=== PATIENT | male | born 1930 | race Caucasian/White ===

== ENCOUNTER → 2016-09-02 | Outpatient (CLI) | payer MEDICARE, BC | LOC: LAB.O 08:32 | DX: N18.4 Chronic kidney disease, stage 4 (severe) (principal); I12.0 Hypertensive chronic kidney disease with stage 5 chronic kidney disease or end stage renal disease; E11.29 Type 2 diabetes mellitus with other diabetic kidney complication ==

== ENCOUNTER → 2016-10-21 | Outpatient (CLI) | payer MEDICARE, BC | END | disposition home or self-care (01) | LOC: GMAJ 10:45 | PROVIDERS: ATTEND Family Medicine | DX: Z12.5 Encounter for screening for malignant neoplasm of prostate (principal); E11.9 Type 2 diabetes mellitus without complications; I10 Essential (primary) hypertension ==

== ENCOUNTER → 2017-01-04 | Outpatient (CLI) | payer MEDICARE, BC | END | disposition home or self-care (01) | LOC: LAB.O 07:42 | PROVIDERS: ATTEND Internal Medicine | DX: C64.2 Malignant neoplasm of left kidney, except renal pelvis (principal); N18.4 Chronic kidney disease, stage 4 (severe) ==

== ENCOUNTER → 2017-05-11 | Outpatient (CLI) | payer MEDICARE, BC | LOC: LAB.O 08:22 | PROVIDERS: ATTEND Internal Medicine | DX: N18.3 Chronic kidney disease, stage 3 (moderate) (principal); E11.9 Type 2 diabetes mellitus without complications; I12.0 Hypertensive chronic kidney disease with stage 5 chronic kidney disease or end stage renal disease ==

== ENCOUNTER → 2017-08-30 | Outpatient (CLI) | payer MEDICARE, BC | LOC: GMAJ 17:34 | PROVIDERS: ATTEND Family Medicine | DX: N39.0 Urinary tract infection, site not specified (principal) ==

== ENCOUNTER → 2017-09-07 | Outpatient (CLI) | payer MEDICARE, BC ==
--- NOTE | 2017-09-07 19:56 | US ---
EXAM DESCRIPTION: Renal: Ultrasound. CLINICAL HISTORY: HEMATURIA, RENAL CELL CARCINOMA. Right nephrectomy. COMPARISON: Bilateral renal arterial Doppler evaluation on the same visit. TECHNIQUE: Transcutaneous scanning: Two-dimensional and Doppler modes. FINDINGS: Left kidney measures 12.2 x 10.6 x 8.6 cm; mid-renal cortical thickness 12 mm. . Lobulated hypoechoic heterogeneous mass with mostly posterior acoustic enhancement measuring 7.5 x 7.1 x 6.5 cm. This appears to be involving the mid kidney and possibly renal pelvis. Minimally vascular. No hydronephrosis No echogenic stones. An anechoic cyst with well-defined margins and posterior enhancement features measures 1.5 x 1.7 x 1.2 cm. Lobulated contour of the kidney with no perinephric fluid. Proximal ureter not visualized. No fluid or soft tissue mass in the right renal fossa. Urinary bladder was visualized. Prevoid volume 118.9 mL. Ureteral jet in the bladder not seen. Post void volume 21.3 mL. Patient voided approximately 80% of initial volume, approximately 98 mL. Minimal bladder wall thickening subjectively. Abdominal aorta diameter not measured . IMPRESSION: 1. 7.5 cm hypoechoic mass, minimally vascular in the region of the kidney and renal pelvis. No hydronephrosis. Mostly posterior enhancement features. Differential includes primary or metastatic disease, complicated cyst or cyst with debris, or residual inflammatory tissue. Recommend CT scan of the abdomen and pelvis without and with IV contrast and with oral contrast. 2. Patient is able to void approximately 80% of initial urinary bladder volume. Subjectively, the bladder wall appears thickened. Electronically signed by: Juancarlos Christianson MD 09/07/2017 7:55 PM CDT
== END ==
LOC: US 10:00
PROVIDERS: ATTEND Internal Medicine
DX: R31.9 Hematuria, unspecified (principal); C64.9 Malignant neoplasm of unspecified kidney, except renal pelvis; Z90.5 Acquired absence of kidney

== ENCOUNTER → 2017-11-03 | Outpatient (CLI) | payer MEDICARE, BC | LOC: LAB.O 12:37 | PROVIDERS: ATTEND Internal Medicine | DX: I12.0 Hypertensive chronic kidney disease with stage 5 chronic kidney disease or end stage renal disease (principal); N18.4 Chronic kidney disease, stage 4 (severe); E11.9 Type 2 diabetes mellitus without complications; E11.29 Type 2 diabetes mellitus with other diabetic kidney complication ==

== ENCOUNTER → 2018-04-04 | Outpatient (CLI) | payer MEDICARE, BC | LOC: LAB.O 08:00 | PROVIDERS: ATTEND Internal Medicine | DX: N18.4 Chronic kidney disease, stage 4 (severe) (principal); E78.2 Mixed hyperlipidemia; E11.9 Type 2 diabetes mellitus without complications; E11.29 Type 2 diabetes mellitus with other diabetic kidney complication ==

== ENCOUNTER → 2018-05-29 | Outpatient (CLI) | payer MEDICARE, BC ==
--- NOTE | 2018-05-29 15:28 | CT ---
EXAM DESCRIPTION: Abdoment/Pelvis w/o Contrast CLINICAL HISTORY: 88 years, 88 years, Male, Male, HEMATURIA COMPARISON: None. TECHNIQUE: CT of the abdomen and pelvis is performed according to our non contrast protocol This exam was performed according to our departmental dose-optimization program, which includes automated exposure control, adjustment of the mA and/or kV according to patient size and/or use of iterative reconstruction technique. FINDINGS: The lung bases demonstrate patchy stranding or scarring at both lung bases without dense consolidation or pleural effusion or pulmonary mass. A small retrocardiac hiatal hernia is present. The liver is small and normal in size without evident gallbladder or solid or cystic hepatic mass or significant abnormal ductal dilation. A small normal spleen is present with fatty infiltrated pancreas. Small normal adrenal glands are noted. The right kidney is is surgically absent and the aorta heavily calcified without aneurysm or retroperitoneal adenopathy. The left kidney is markedly abnormal with a large heterogeneous mass replacing the posterior two thirds of the kidney and estimated at a maximal diameter of a proximally 7.8 cm. The kidney is oriented in an anterior to posterior direction and I am uncertain whether the mass involves the lower pole or upper pole of the kidney. Primary renal cell carcinoma is strongly suspected. Benign cyst involving the cortex of the kidney more anteriorly is present as well as significant caliectasis of the anterior pole of the kidney. Further evaluation with contrast-enhanced examination is recommended. Periaortic or retroperitoneal adenopathy is not apparent. Left renal vein appears moderately distended and the possibility of tumor involvement cannot be excluded on this noncontrast study. Anterior abdominal wall is markedly abnormal with rather marked atrophy of the upper portion of the right rectus muscle and the lower portion of the left rectus muscle. A very small umbilical hernia is noted. On the left inferiorly a much larger fat-containing hernia, probably a spigelian hernia, at the dural margin of the atrophic left rectus muscles and the lateral abdominal musculature is noted. Large and small bowel caliber is normal. The bladder is incompletely distended and appears thick-walled. Stool distended rectum is noted. A distinct or definite inguinal hernia is not apparent. The bony spine demonstrates degenerative disc changes at L4-5 and to a lesser extent L5-S1 without bony destructive changes. IMPRESSION: 1. Surgical absence of the right kidney with large almost 8 cm mass three patent replacing the posterior aspect of the right kidney with the kidney oriented in an anterior to posterior axis. The mass is most consistent with a primary renal cell carcinoma and enhanced CT or MRI examination recommended. Moderate caliectasis of the anterior pole of the kidney is noted and the possibility of renal vein involvement with mass cannot be excluded. 2. Small hiatal hernia and small fat-containing ventral hernia with a much larger left lower quadrant anterior abdominal wall fat-containing hernia, likely a spigelian hernia. 3. Surgical absence of the gallbladder and basilar linear pulmonary stranding most consistent with scarring and/or atelectasis. 4. Lower lumbar degenerative disc disease without evidence of bony destructive mass. Electronically signed by: Rufus Almendarez MD 05/29/2018 3:25 PM CDT
== END ==
LOC: RAD 11:19
PROVIDERS: ATTEND Family Medicine
DX: N28.89 Other specified disorders of kidney and ureter (principal); K44.9 Diaphragmatic hernia without obstruction or gangrene; K43.9 Ventral hernia without obstruction or gangrene; M51.36 Other intervertebral disc degeneration, lumbar region; Z90.5 Acquired absence of kidney; Z90.49 Acquired absence of other specified parts of digestive tract

== ENCOUNTER 2018-08-18 13:54 | Emergency (ER) | payer MEDICARE, BC ==
--- NOTE | 2018-08-18 14:26 | ED.PDOC ---
History of Present Illness - General Chief Complaint: General Stated Complaint: SOB, N/V, weakness, lethargy Time Seen by Provider: 08/18/18 14:04 Source: patient, family - History of Present Illness Initial Comments: Pt has been feeling weak and SOB x 3 weeks since last immunotherapy infusion ([employer]). Pt also has had N/V/D intermittantly. Pt sent from Clinic because of abnormal EKG . Pt has 60% of one kidney remaining. Timing/Duration: intermittent Severity: moderate Improving Factors: immobilization Worsening Factors: movement Associated Symptoms: malaise, nausea/vomiting, shortness of breath, weakness Allergies/Adverse Reactions: Allergies NO KNOWN ALLERGY Allergy (Verified 08/18/18 14:24) Home Medications: Ambulatory Orders Allopurinol [Zyloprim] 100 mg PO DAILY 08/18/18 Amlodipine Besylate [Norvasc] 2.5 mg PO DAILY 08/18/18 Aspirin [Adult Aspirin Regimen] 81 mg PO DAILY 08/18/18 Carvedilol 25 mg PO DAILY 08/18/18 Cholecalciferol [Vitamin D3] 2,000 unit PO DAILY 08/18/18 Coenzyme Q10 (Ubidecarenone) [Co Q-10] 200 mg PO DAILY 08/18/18 Cyanocobalamin [Vitamin B-12] 5,000 mcg PO DAILY 08/18/18 Cyproheptadine HCl 2 mg PO DAILY PRN 08/18/18 Glimepiride 1 mg PO DAILY 08/18/18 Mirabegron [Myrbetriq] 25 mg PO DAILY 08/18/18 Niacin [Niacin Tr] 1,000 mg PO DAILY 08/18/18 Nivolumab [Opdivo] 40 mg IV MONTHLY 08/18/18 Oxybutynin Chloride [Ditropan Xl] 10 mg PO DAILY 08/18/18 Pantoprazole Tablet [Protonix] 40 mg PO DAILY 08/18/18 Simvastatin 10 mg PO DAILY 08/18/18 Terazosin [Hytrin] 2 mg PO DAILY 08/18/18 Tramadol HCl [Ultram] 50 mg PO Q6H PRN 08/18/18 Review of Systems - Review of Systems Constitutional: States: weakness. Denies: fever EENTM: States: no symptoms reported Respiratory: States: short of breath. Denies: cough, orthopnea Cardiology: Denies: chest pain, edema Gastrointestinal/Abdominal: States: diarrhea, nausea, vomiting. Denies: abdominal pain Genitourinary: States: no symptoms reported Musculoskeletal: States: no symptoms reported Skin: States: no symptoms reported Neurological: States: no symptoms reported Endocrine: States: no symptoms reported Hematologic/Lymphatic: States: no symptoms reported Past Medical History (General) - Patient Medical History Hx Stroke: No Hx of COPD: No Hx Cardiac Disorders: No Hx Congestive Heart Failure: No Hx Hypertension: Yes Hx Diabetes: Yes Hx Cancer: Yes - Renal Surgical History: appendectomy, cholecystectomy, tonsillectomy - Vaccination History Hx Influenza Vaccination: Yes Hx Pneumococcal Vaccination: Yes - Social History Hx Tobacco Use: Yes Hx Alcohol Use: Yes Hx Substance Use: No Hx Substance Use Treatment: No Hx Depression: No - Female History Patient is a Female of Child Bearing Age (10 -59 yrs old): No Patient : No Family Medical History - Family History Mother Family History: No Known Living Status: Physical Exam - Physical Exam General Appearance: Alert, Comfortable Eye Exam: bilateral normal Ears, Nose, Throat: hearing grossly normal, normal pharynx, other - dry mucosa Neck: non-tender, full range of motion, normal inspection Respiratory: lungs clear, normal breath sounds, no respiratory distress Cardiovascular/Chest: no edema, irregularly irregular Gastrointestinal/Abdominal: normal bowel sounds, non tender, soft Extremity: normal range of motion, non-tender, normal inspection 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, alert, normal mood/affect, oriented x 3 Skin Exam: normal color, warm/dry Lymphatic: no adenopathy Progress - EKG/XRAY/CT EKG: Atrial, Fibrillation, RBBB Comments: frequent PVC's, rate 95, QRS 140, QTc 517 Departure - Departure Clinical Impression: Elevated troponin I level, New onset atrial fibrillation CHF (congestive heart failure) Qualifiers: Heart failure type: unspecified Heart failure chronicity: acute Qualified Code(s): I50.9 - Heart failure, unspecified Renal cell carcinoma Qualifiers: Laterality: unspecified laterality Qualified Code(s): C64.9 - Malignant neoplasm of unspecified kidney, except renal pelvis Disposition: Transfer to Hospital Condition: Fair Departure Forms: ED Discharge - Pt. Copy, Patient Portal Self Enrollment Referrals: Kentrell Pritchard MD [Primary Care Provider] - 1-2 Weeks Home Medications: Ambulatory Orders Allopurinol [Zyloprim] 100 mg PO DAILY 08/18/18 Amlodipine Besylate [Norvasc] 2.5 mg PO DAILY 08/18/18 Aspirin [Adult Aspirin Regimen] 81 mg PO DAILY 08/18/18 Carvedilol 25 mg PO DAILY 08/18/18 Cholecalciferol [Vitamin D3] 2,000 unit PO DAILY 08/18/18 Coenzyme Q10 (Ubidecarenone) [Co Q-10] 200 mg PO DAILY 08/18/18 Cyanocobalamin [Vitamin B-12] 5,000 mcg PO DAILY 08/18/18 Cyproheptadine HCl 2 mg PO DAILY PRN 08/18/18 Glimepiride 1 mg PO DAILY 08/18/18 Mirabegron [Myrbetriq] 25 mg PO DAILY 08/18/18 Niacin [Niacin Tr] 1,000 mg PO DAILY 08/18/18 Nivolumab [Opdivo] 40 mg IV MONTHLY 08/18/18 Oxybutynin Chloride [Ditropan Xl] 10 mg PO DAILY 08/18/18 Pantoprazole Tablet [Protonix] 40 mg PO DAILY 08/18/18 Simvastatin 10 mg PO DAILY 08/18/18 Terazosin [Hytrin] 2 mg PO DAILY 08/18/18 Tramadol HCl [Ultram] 50 mg PO Q6H PRN 08/18/18 Critical Care Note - Critical Care Note Total Time (mins): 40 Comments: Presenting sx's: SOB, weakness. Findings: New onset A. Fib, CHF, Elevated Troponin, elevated total CK, Chronic Renal injury with stable creat., Hypokalemia Actions: IV KCL, IV heparin infusion, transfer to higher level of care Systems at risk: Cardiovascular, Transfer to Outside Facility - Transfer Information Accepting Facility: [facility] Reason for Transfer: required specialist not available - Dr Marrero accepted pt in transfer
[2018-08-18] MEDS ORDERED: SODIUM CHLORIDE 0.9% 500ML 500 ML IVS ONE (14:32)
--- NOTE | 2018-08-18 14:53 | RAD ---
EXAM DESCRIPTION: Chest,1 View CLINICAL HISTORY: 88 years Male, weakness COMPARISON: Previous chest x-ray February 15, 2018 TECHNIQUE: AP portable chest. FINDINGS: Heart size is large with large central pulmonary arteries consistent with pulmonary hypertension. Mildly increased vascularity more peripherally in the perihilar lower lobe regions. No focal consolidating infiltrate to suggest pneumonia. No pulmonary mass or worrisome nodule. No pneumothorax or pleural effusion. Bones are unremarkable. IMPRESSION: Larger with increased vascularity. Electronically signed by: Luis Fernando Sandhu MD 08/18/2018 2:51 PM CDT
[2018-08-18] MEDS ORDERED: KCL 20MEQ/WATER FOR INJ 100ML 20 MEQ in PREMIX BAG 1 BAG IVPB ONE (15:06)
[2018-08-18] MEDS ORDERED: POTASSIUM CHLORIDE 20 MEQ TAB PO ONE (15:07)
[2018-08-18] MEDS ORDERED: KCL 20MEQ/WATER FOR INJ 100ML 100 ML IVPB ONE (15:10)
[2018-08-18] MEDS ORDERED: HEPARIN PREMIX 25,000 UNITS in PREMIX BAG 1 BAG IVS SCH (15:45)
[2018-08-18] MEDS ORDERED: HEPARIN PREMIX 500 ML ONE (16:02)
[2018-08-18 16:31] VITALS: BP 159/59; TEMP 97.6; O2SAT 96
== END 2018-08-18 16:25 | disposition short-term general hospital (02) ==
LOC: ER 13:54
DX: I50.9 Heart failure, unspecified (principal); I48.91 Unspecified atrial fibrillation; R79.89 Other specified abnormal findings of blood chemistry; C64.9 Malignant neoplasm of unspecified kidney, except renal pelvis; R11.2 Nausea with vomiting, unspecified; I44.0 Atrioventricular block, first degree; I49.3 Ventricular premature depolarization; I10 Essential (primary) hypertension; E11.9 Type 2 diabetes mellitus without complications; Z87.891 Personal history of nicotine dependence; Z79.899 Other long term (current) drug therapy; Z79.82 Long term (current) use of aspirin
CPT/HCPCS: 36415; 71045; 80048; 82550; 82553; 83880; 84484; 85025; 85610; 85730; 86140; 93005; J1644; J3480; J7040

== ENCOUNTER 2018-08-24 09:47 | Inpatient (IN) | payer MEDICARE, BC ==
--- NOTE | 2018-08-24 10:06 | ED.PDOC ---
History of Present Illness - General Chief Complaint: Respiratory Problem Stated Complaint: difficulty breathing,difficulty swallowing Time Seen by Provider: 08/24/18 10:06 Source: family Exam Limitations: no limitations - History of Present Illness Initial Comments: Nicola Brewster 88 y/o male brought by EMS to ER with SOB on home O2 and difficulty swallowing for the last 2 weeks..He was just recently discharged from [facility] with Acute AR and afib on anti coagulation..has also Renal cell CA and DM2.Daughter stated had swallowing studies done at [facility] -.NO chest pains but more SOB Timing/Duration: 7-24 hours Severity: moderate Activities at Onset: rest Possible Cause: occasional episodes Improving Factors: nothing Worsening Factors: movement Associated Symptoms: other - see hpi Allergies/Adverse Reactions: Allergies NO KNOWN ALLERGY Allergy (Verified 08/18/18 14:24) Home Medications: Ambulatory Orders Allopurinol [Zyloprim] 100 mg PO DAILY 08/18/18 Cholecalciferol [Vitamin D3] 2,000 unit PO DAILY 08/18/18 Coenzyme Q10 (Ubidecarenone) [Co Q-10] 200 mg PO DAILY 08/18/18 Cyanocobalamin [Vitamin B-12] 5,000 mcg PO DAILY 08/18/18 Cyproheptadine HCl 2 mg PO DAILY PRN 08/18/18 Glimepiride 1 mg PO DAILY 08/18/18 Mirabegron [Myrbetriq] 25 mg PO DAILY 08/18/18 Niacin [Niacin Tr] 1,000 mg PO BEDTIME 08/18/18 Oxybutynin Chloride [Ditropan Xl] 10 mg PO DAILY 08/18/18 Pantoprazole Tablet [Protonix] 40 mg PO DAILY 08/18/18 Simvastatin 10 mg PO DAILY 08/18/18 Terazosin [Hytrin] 2 mg PO BEDTIME 08/18/18 Tramadol HCl [Ultram] 50 mg PO Q6H PRN 08/18/18 Apixaban [Eliquis] 2.5 mg PO BID 08/24/18 Furosemide [Lasix] 40 mg PO DAILY 08/24/18 Metoprolol Succinate [Toprol XL] 50 mg PO DAILY 08/24/18 Nitroglycerin 0.4 mg Tab [Nitrostat] 1 ea SL PRN 08/24/18 Potassium Chloride [K-Tab] 10 meq PO DAILY 08/24/18 Review of Systems - Review of Systems Constitutional: States: no symptoms reported EENTM: States: see HPI, other - dysphagia Respiratory: States: see HPI Cardiology: States: no symptoms reported Gastrointestinal/Abdominal: States: no symptoms reported Genitourinary: States: no symptoms reported Musculoskeletal: States: no symptoms reported Skin: States: no symptoms reported Neurological: States: no symptoms reported All other Systems: Reviewed and Negative, No Change from Baseline Past Medical History (General) - Patient Medical History Hx Stroke: No Hx of COPD: No Hx Cardiac Disorders: Yes - recent AR Hx Congestive Heart Failure: No Hx Hypertension: Yes Hx Diabetes: Yes Hx Renal Disease: Yes Hx Cancer: Yes - Renal Surgical History: other - nephrectomy - Vaccination History Hx Influenza Vaccination: Yes Hx Pneumococcal Vaccination: Yes - Social History Hx Tobacco Use: Yes Hx Alcohol Use: Yes Hx Substance Use: No Hx Substance Use Treatment: No Hx Depression: No - Activities of Daily Living Grooming Ability: Minimum Assistance Eating (Feeding) Ability: Minimum Assistance Toileting Ability: Minimum Assistance - Female History Patient is a Female of Child Bearing Age (10 -59 yrs old): No Patient : No Family Medical History - Family History Mother Family History: No Known Living Status: Hx Family Hypertension: Yes - parents Physical Exam - Physical Exam General Appearance: Alert, Comfortable, No apparent distress Eyes, Ears, Nose, Throat Exam: normal ENT inspection, pharynx normal Neck: supple, normal inspection Respiratory: no respiratory distress, no accessory muscle use, rales - bases Cardiovascular/Chest: normal peripheral pulses, no gallop, no murmur, irregula rly irregular Peripheral Pulses: radial,right: 2+, radial,left: 2+ Gastrointestinal/Abdominal: non tender, soft, no organomegaly Extremity: no calf tenderness, pedal edema - 1 + pedal edema Neurologic: no motor/sensory deficits, alert, oriented x 3 Skin Exam: normal color, warm/dry Lymphatic: no adenopathy Progress - Progress Progress: 08/24/18 10:47 Vital Signs - 8 hr 08/24/18 09:57 Temperature 97.6 F Pulse Rate [ 46 L Left Brachial] Respiratory 20 Rate Blood Pressure 170/62 [Left Arm] O2 Sat by Pulse 94 L Oximetry - Results/Orders Results/Orders: Vital Signs - 8 hr 08/24/18 08/24/1808/24/19 09:57 10:46 11:46 Temperature 97.6 F 97.8 F Pulse Rate [ 46 L 64 Left Brachial] Respiratory 20 20 16 Rate Blood Pressure 170/62 164/63 [Left Arm] O2 Sat by Pulse 94 L 93 L Oximetry 08/24/18 10:15 EKG STAT 08/24/18 11:55 Hold Metformin x 48Hrs [id number] 08/24/18 13:05 Multiple Vitamin Inj [MVI Injectable] 10 ml Sodium Chloride 0.9% 1000ML [Ns 1000 ml] 1,000 ml IVPB ONCE 08/24/18 13:30 Multiple Vitamin Inj [MVI Injectable] 10 ml Folic Acid Inj 1 mg Sodium Chloride 0.9% 1000ML [Ns 1000 ml] 1,000 ml IVS Q24H 08/24/18 14:02 Brain w/oContrast [MRI] Stat 08/24/18 14:07 Admission Order Routine Activity:Ambulate w/Assistance .PRN Activity:Up in Chair .PRN Daily Weight (Standing Scale) DAILY Notify:Physician .PRN Telemetry Q4H Acetaminophen [Tylenol] 650 mg PO Q6H PRN Ondansetron Inj [Zofran Inj] 4 mg IV Q6H PRN Sodium Chloride 0.9% (Flush) [Saline Flush Syringe] 3 ml IV PRN PRN 08/24/18 14:08 Neurological Checks Q4H 08/24/18 14:09 Pulse Oximetry Assessment DAILY 08/24/18 14:30 IV Set and Cap Change 1 ea INJ Q72H 08/25/18 09:00 Pulse Ox Daily Laboratory Results - last 24 hr 08/24/18 08/24/18 08/24/18 10:40 11:50 13:13 WBC 10.3 RBC 3.70 L Hgb 11.9 L Hct 37.1 L MCV 100.5 H MCH 32.3 H MCHC 32.1 L RDW 16.5 H Plt Count 226 MPV 9.1 Absolute Neuts (auto) 8.70 H Absolute Lymphs (auto) 0.70 L Absolute Monos (auto) 0.80 Absolute Eos (auto) 0.00 Absolute Basos (auto) 0.00 Neutrophils % 84.6 H Lymphocytes % 6.8 L Monocytes % 7.7 Eosinophils % 0.4 L Basophils % 0.5 PT 12.3 H INR 1.23 H PTT (SP) 24.8 Sodium 140 Potassium 3.5 L Chloride 106 Carbon Dioxide 20 L Anion Gap 17.5 BUN 50 H Creatinine 2.87 H BUN/Creatinine Ratio 17.4 Random Glucose 104 Serum Osmolality 293.0 Calcium 11.2 H Magnesium 1.9 Total Bilirubin 0.7 Direct Bilirubin 0.1 Indirect Bilirubin 0.6 AST 103 H ALT 112 H Alkaline Phosphatase 60 Creatine Kinase 830 H* CK-MB (CK-2) 113.2 H* CK-MB (CK-2) % 13.64 H Troponin I 3.53 H* 3.37 H* B-Natriuretic Peptide 802.0 H* Serum Total Protein 7.1 Albumin 3.7 Urine Color Yellow Urine Appearance Clear Urine pH 5.5 Ur Specific [place] >= 1.030 Urine Protein 100 H Urine Glucose (UA) Negative Urine Ketones Trace Urine Blood Moderate H Urine Nitrite Negative Urine Bilirubin Small H Urine Urobilinogen 0.2 Ur Leukocyte Esterase Negative Urine RBC 1-3 Urine WBC 0-1 Ur Epithelial Cells 0-1 Amorphous Sediment 1+ Urine Bacteria 0 - EKG/XRAY/CT EKG: Atrial, Fibrillation Comments: HR-87 Departure - Departure Clinical Impression: Recent myocardial infarction, Atrial fibrillation with normal ventricular rate Dyspnea Qualifiers: Dyspnea type: unspecified Qualified Code(s): R06.00 - Dyspnea, unspecified Pneumonia Qualifiers: Pneumonia type: due to unspecified organism Laterality: left Lung location: lower lobe of lung Qualified Code(s): J18.1 - Lobar pneumonia, unspecified organism Renal cell cancer Qualifiers: Laterality: left Qualified Code(s): C64.2 - Malignant neoplasm of left kidney, except renal pelvis Renal failure Qualifiers: Renal failure chronicity: chronic Chronic kidney disease stage: stage 3 (moderate) Qualified Code(s): N18.3 - Chronic kidney disease, stage 3 (moderate) Dysphagia Qualifiers: Dysphagia type: pharyngeal phase Qualified Code(s): R13.13 - Dysphagia, pharyngeal phase Time of Disposition: 14:49 Disposition: Admit Patient Condition: Poor Departure Forms: ED Discharge - Pt. Copy, Patient Portal Self Enrollment Referrals: Kentrell Pritchard MD [Primary Care Provider] - 1-2 Weeks Home Medications: Ambulatory Orders Allopurinol [Zyloprim] 100 mg PO DAILY 08/18/18 Cholecalciferol [Vitamin D3] 2,000 unit PO DAILY 08/18/18 Coenzyme Q10 (Ubidecarenone) [Co Q-10] 200 mg PO DAILY 08/18/18 Cyanocobalamin [Vitamin B-12] 5,000 mcg PO DAILY 08/18/18 Cyproheptadine HCl 2 mg PO DAILY PRN 08/18/18 Glimepiride 1 mg PO DAILY 08/18/18 Mirabegron [Myrbetriq] 25 mg PO DAILY 08/18/18 Niacin [Niacin Tr] 1,000 mg PO BEDTIME 08/18/18 Oxybutynin Chloride [Ditropan Xl] 10 mg PO DAILY 08/18/18 Pantoprazole Tablet [Protonix] 40 mg PO DAILY 08/18/18 Simvastatin 10 mg PO DAILY 08/18/18 Terazosin [Hytrin] 2 mg PO BEDTIME 08/18/18 Tramadol HCl [Ultram] 50 mg PO Q6H PRN 08/18/18 Apixaban [Eliquis] 2.5 mg PO BID 08/24/18 Furosemide [Lasix] 40 mg PO DAILY 08/24/18 Metoprolol Succinate [Toprol XL] 50 mg PO DAILY 08/24/18 Nitroglycerin 0.4 mg Tab [Nitrostat] 1 ea SL PRN 08/24/18 Potassium Chloride [K-Tab] 10 meq PO DAILY 08/24/18 Decision To Admit - Decistion To Admit Decision to Admit Reason: Admit from ER Decision to Admit Date: 08/24/18 - D/W Dr. Pritchard-Primary Md Decision to Admit Time: 14:47 - D/W Alexander Jones -ANP/Hospitalist
[2018-08-24] MEDS ORDERED: ASPIRIN (CHEWABLE) 81 MG TAB PO ONE (10:10)
--- NOTE | 2018-08-24 11:28 | RAD ---
EXAM DESCRIPTION: Chest,1 View CLINICAL HISTORY: 88 years Male, sob COMPARISON: Previous study August 18, 2018 TECHNIQUE: AP portable chest. FINDINGS: Heart size is large with large central pulmonary arteries. Right hemidiaphragm is elevated. Infiltrate in the right perihilar region is seen with ill-defined infiltrative changes in the medial left lung base behind the heart. Volume loss or pneumonia are favored over pulmonary edema from heart failure. Previous study showed similar findings. No pulmonary mass or worrisome nodule. No pneumothorax. Question small left pleural effusion. Bones are unremarkable. IMPRESSION: Large heart with increased vascularity. Patchy lower lobe infiltrates or atelectasis Electronically signed by: Luis Fernando Sandhu MD 08/24/2018 11:26 AM CDT
[2018-08-24] MEDS ORDERED: PIPERACILLIN/TAZOBACTAM 3.375 GM in SODIUM CHLORIDE 0.9% 100ML 100 ML IVPB ONE (13:02)
--- NOTE | 2018-08-24 13:04 | CT ---
TECHNIQUE: Spiral CT examination of the neck performed. Multiplanar reformats performed. This exam was performed according to our departmental dose-optimization program, which includes automated exposure control, adjustment of the mA and/or kV according to patient size and/or use of iterative reconstruction technique. CLINICAL HISTORY PROVIDED: diff swallowing COMPARISON: None available. FINDINGS: Nasal Cavity: Unremarkable. Paranasal Sinuses: Small mucosal retention cyst within the left maxillary sinus. Near circumferential thickening in the right sphenoid sinus locule. Nasopharynx: Unremarkable. Oropharynx: Unremarkable. Oral Cavity: There is high density material in the oral and esophageal cavity, which presumably relates to recently ingested contrast material. Hypopharynx: Unremarkable. Larynx: Unremarkable. Trachea: Unremarkable. Thyroid: Unremarkable. Parotid Glands: Unremarkable. Submandibular Glands: Unremarkable. Carotids / Internal Jugular Veins: Vascular patency is not assessed due to lack of intravenous contrast. There is mild atherosclerotic plaque at the carotid bulbs bilaterally. Skull Base: Unremarkable. Visible Brain and Orbits: Unremarkable. Lymph Nodes: Small lymph nodes are noted bilaterally. Soft Tissue Mass / Abscess: None present. Incidental Findings: Degenerative spondylolisthesis in the cervical spine. No acute osseous abnormality. IMPRESSION: 1. No CT findings to account for difficulty swallowing. 2. High density material lining the oral/esophageal pathway presumably reflects recently ingested contrast material. Electronically signed by: Yves Keller MD 08/24/2018 1:02 PM CDT
[2018-08-24] MEDS ORDERED: MULTIPLE VITAMIN INJ 10 ML in SODIUM CHLORIDE 0.9% 1000ML 1,000 ML IVPB ONE (13:05)
[2018-08-24] MEDS ORDERED: SODIUM CHLORIDE 0.9% 100ML 100 ML IVPB ONE (13:12)
[2018-08-24] MEDS ORDERED: PIPERACILLIN/TAZOBACTAM 3.375 GM VIAL IVPB ONE (13:12)
[2018-08-24] MEDS ORDERED: MULTIPLE VITAMIN 10 ML VIAL ONE (13:21)
[2018-08-24] MEDS ORDERED: SODIUM CHLORIDE 0.9% 1000ML 1,000 ML ONE (13:23)
[2018-08-24] MEDS: MULTIPLE VITAMIN INJ 10 ML, FOLIC ACID INJ 1 MG in SODIUM CHLORIDE 0.9% 1000ML 1,000 ML IVS SCH (13:31)
[2018-08-24] MEDS ORDERED: FOLIC ACID INJ 5 MG/ML VIAL ONE (13:39)
[2018-08-24] MEDS ORDERED: ACETAMINOPHEN 325 MG TAB PO PRN (14:07)
[2018-08-24] MEDS ORDERED: SODIUM CHLORIDE 0.9% (FLUSH) 10 ML SYG IV PRN (14:07)
[2018-08-24] MEDS ORDERED: ONDANSETRON INJ 4 MG/2 ML VIAL IV PRN (14:07)
[2018-08-24] MEDS ORDERED: IV SET AND CAP CHANGE INJ INJ SCH (14:30)
--- NOTE | 2018-08-24 15:06 | HP ---
SUPERVISING PHYSICIAN: Emanuel Saldivar MD CHIEF COMPLAINT: Difficulty swallowing and shortness of breath. HISTORY OF PRESENT ILLNESS: Mr. Brewster is an 88 year-old male patient who was brought to the Emergency Department with EMS from home with complaint of shortness of breath and difficulty swallowing. He does utilize home 02. He had recently been discharged from [facility] after having an acute myocardial infarction and developing atrial fibrillation and he was placed on anticoagulation. He also has a significant history of renal carcinoma that was treated with a nephrectomy with recurrence within this past year. His daughter notes he had been taking chemotherapy and since chemo had developed some double vision and difficulty swallowing. In the Emergency Room today a CT of his soft tissue of the neck was completed and showed no findings to account for the difficulty swallowing. He also had a chest x-ray and per radiology interpretation was note of a patchy lower lobe atelectasis with volume loss or pneumonia favored over pulmonary edema from heart failure. Vital signs showed a heart rate of 64, blood pressure of 164/63, saturation 94% on room air at rest. His laboratory studies showed a white count of 10,300 with a left shift, hemoglobin 11.9, hematocrit 37.1. Chemistries showed slightly low potassium at 3.5. Liver functions were elevated including AST, ALT. His cardiac enzymes also showed an elevation of his troponin up to 3.53 with a CPK of 830. BNP was 802. Given his past history and advanced age and concern for possible CVA versus complications from recent chemo and developing bilateral pneumonia and given that he has been some difficulty swallowing, there was concern for aspiration pneumonia. Dr. Pritchard requested the patient be admitted for further treatment and evaluation. Initially, in the Emergency Room he was started on antibiotics to include Zosyn and a multivitamin infusion. The patient is going to be admitted and at time of admission he was in stable condition. PAST MEDICAL HISTORY: 1. Recent myocardial infarction 08/18/18, non-STEMI with cardiac catheterization showing 95% occlusion of LAD with an ejection fraction of 40%. 2. New onset of atrial fibrillation on Eliquis. 3. History of renal carcinoma initially diagnosed in 2006 treated with right nephrectomy and recurrence in 2019 and currently on chemo. 4. Type 2 diabetes mellitus. 5. Hyperlipidemia. 6. Hypertension. 7. Gastroesophageal reflux disease. 8. Hiatal hernias. 9. Chronic renal failure. PAST SURGICAL HISTORY: 1. Cholecystectomy. 2. Nephrectomy, right side in 2001. 3. Hernia repair. CURRENT MEDICATIONS: 1. Tramadol 50 mg every 6 hours p.r.n. 2. Hytrin 2 mg at bedtime. 3. Simvastatin 10 mg daily. 4. K-Tabs 10 mEq daily. 5. Protonix 40 mg daily. 6. Ditropan 10 mg daily. 7. Nitrostat as needed. 8. Niacin 1000 mg at bedtime. 9. Myrbetriq 25 mg daily. 10. Toprol 50 mg daily. 11. Glimepiride 1 mg daily. 12. Lasix 40 mg daily. 13. Cyproheptadine 10 mg daily as needed. 14. Vitamin B12, 5000 mcg daily. 15. Coenzyme 200 mg daily. 16. Vitamin D3, 2000 units daily. 17. Eliquis 2.5 mg b.i.d. 18. Allopurinol 100 mg daily. ALLERGIES: No known drug allergies. CODE STATUS: Do Not Resuscitate. HEALTHCARE PROVIDERS: Welding Manager - Dr. Romero; Oncologist - Dr. Veloz; Urologist - Dr. Waller,all in [place], [place] FAMILY HISTORY: Father at age 49 due to sudden cardiac and myocardial infarction. Mother from complications of a stroke. SOCIAL HISTORY: The patient is retired. He is . He has one child and lives with his daughter. He has a past history of cigarette smoking but quit in 1964 and he does not drink alcohol. REVIEW OF SYSTEMS: CONSTITUTIONAL: Worsened general malaise and weakness with decreased appetite. HEENT: Mild dysphagia with some dysarthria as well as diplopia. Negative for headaches or earaches. CARDIOVASCULAR: Positive fo recent myocardial infarction on 08/18/18 with continued cardiac enzymes being elevated and new onset of atrial fibrillation. He denies any chest pains but has worsened shortness of breath, especially with exertional effort. CHEST: Increasing shortness of breath with mildly productive cough, 02 dependent. GASTROINTESTINAL: Negative for nausea, vomiting, diarrhea or constipation. GENITOURINARY: Positive for ongoing hematuria secondary to renal carcinoma. Denies any dysuria. MUSCULOSKELETAL: Generalized weakness but no arthralgias. SKIN: Has some easy bruising since starting Eliquis but no lesions or rashes. NEUROLOGIC: New onset of dysarthria, dysphagia and diplopia after starting chemo and myocardial infarction with concerns for possible CVA. PHYSICAL EXAMINATION: VITAL SIGNS: Temperature 97.8, pulse 64, blood pressure 164/63, respirations 16, saturation 93% on 2 liters nasal cannula. Admission weight 90 kg. GENERAL: The patient appears to be in no acute disease. He is alert, appears somewhat dry and a little malnourished and slightly unkept. HEENT: Oropharynx is pink with dry mucous membranes. NECK: Supple, non-tender, full range of motion. CHEST: Lungs were fairly clear except for some basilar rales and some rhonchi heard in the bilateral bases more prominent on the right. No wheezing is noted. CARDIOVASCULAR: Irregular rate and rhythm with no appreciable murmurs, rubs, or gallops. ABDOMEN: Soft, non-tender, positive bowel sounds. EXTREMITIES: 1+ pedal edema bilaterally. NEUROLOGIC: He has some obvious dysarthria and some dysphagia with diplopia. He does show some mild facial asymmetry with mild left facial droop. All other cranial nerves appear grossly intact. There was no notable nystagmus, although it was quite difficult to fully assess as he is having some diplopia. He was alert and oriented x3. SKIN: Pale, pink and dry. LABORATORY: White count 10,300, hemoglobin 11.9, hematocrit 37.1, RBC indices indicate a microcytosis with a platelet count of 226,000. Differential did show a left shift. Coagulation studies showed a PT of 12.3 with a PTT of 24.8. Chemistries showed a low potassium of 3.5, carbon dioxide a little low at 20, BUN 50, creatinine 2.7, calcium high at 11.2. Liver functions showed normal bilirubin. AST was elevated at 103, ALT at 112, CPK elevated at 830 with a troponin of 3.53 initially and was showing to be trending down before admission, 3 hours post with 3.37. Repeat BNP was showing an elevation at 802. Urinalysis showed a moderate amount of blood, small amount of bilirubin, 100 of protein. MICROSCOPIC: Unremarkable. RADIOLOGY: Chest x-ray, single-view, showed enlarged heart with increased vasculature and patchy lower lobe infiltrate or atelectasis. He did have a CT soft tissue of the neck and per radiology interpretation, no CT findings to account for the difficulty swallowing. He had a CT of the head and per radiology interpretation showed no acute intracranial process is noted. There was note of moderate volume loss. MRI was attempted but he was unable to lay flat due to his increasing shortness of breath. Echocardiogram performed at [facility] on 08/19/18 showed an ejection fraction of 40%. EKG shows atrial fibrillation with bigeminy with a controlled ventricular rate. ASSESSMENT: 1. Bilateral community acquired pneumonia. 2. Acute on chronic congestive heart failure with a reduced ejection fraction with a recent myocardial infarction with a catheterization showing a 95% occlusion of LAD with continued elevated troponins. 3. Acute on chronic renal failure complicated by recent chemotherapy and renal carcinoma. 4. Increasing weakness and severe deconditioning due to difficulty with oral intake from dysphagia. 5. Concerns for possible right-sided CVA, although possible complications from recent chemo with workups pending including mild dysarthria with dysphagia and diplopia. 6. Chronic atrial fibrillation on Eliquis with a controlled ventricular rate. 7. History of hypertension. 8. History of gastroesophageal reflux disease. PLAN: The patient is going to be admitted for further evaluation and treatment. We will continue with his IV infusion of multivitamin and continue with low fluids as he is quite dry. Will monitor him closely and as needed, begin to continue with his Lasix. He did discuss with his daughter and staff that he does want to be a Do Not Resuscitate. The papers have been signed. Also discussed with hospice and both patient and his daughter are wanting to talk about hospice and [facility]. We will review his medications and update those and resume those as appropriate once they are verified. Will continue DVT prophylaxis with his Eliquis. Will anticipate his length of stay to be at least 2 to 3 days. Will repeat labs in the morning. Until we can transition him back to outpatient management, we will continue to monitor and treat as needed. [facility][id number] [facility]
[2018-08-24] MEDS ORDERED: KCL 20MEQ/D5 1/2NS 1,000 ML IVS PRN (18:19)
--- NOTE | 2018-08-24 18:21 | CT ---
EXAM DESCRIPTION: Head CLINICAL HISTORY: possible tia COMPARISON: None available TECHNIQUE: Contiguous axial images through the head were obtained without intravenous contrast administration. Sagittal and coronal reconstructions were reviewed. FINDINGS: No evidence of acute major vascular territorial infarct or intraparenchymal hemorrhage. No intra-axial or extra-axial fluid collections are identified. No significant mass effect or midline shift. Moderate volume loss noted. The ventricles and cisterns appear normal in caliber. The sella and suprasellar regions appear normal. The structures of the posterior fossa are intact. The globes are intact bilaterally. The visualized paranasal sinuses and mastoid air cells are well-aerated. Review of the bones demonstrates no gross instability. IMPRESSION: 1. No acute intracranial process. 2. Moderate volume loss. This exam was performed according to our departmental dose-optimization program, which includes automated exposure control, adjustment of the mA and/or kV according to patient size and/or use of iterative reconstruction technique. Electronically signed by: Adarsh Baltazar MD 08/24/2018 6:19 PM CDT
[2018-08-24] MEDS ORDERED: AZITHROMYCIN IV 500 MG in SODIUM CHLORIDE 0.9% 250ML 250 ML IVPB SCH (18:30)
[2018-08-24] MEDS ORDERED: AMPICILLIN & SULBACTAM SODIUM 1.5 GM VIAL ONE (19:35)
[2018-08-24] MEDS ORDERED: SODIUM CHLORIDE 0.9% 50ML 50 ML ONE (19:36)
[2018-08-24] MEDS ORDERED: SODIUM CHLORIDE 0.9% 250ML 250 ML ONE (19:36)
[2018-08-24] MEDS ORDERED: AZITHROMYCIN IV 500 MG VIAL IVPB ONE (19:36)
[2018-08-24] MEDS ORDERED: AMPICILLIN & SULBACTAM SODIUM 1.5 GM in SODIUM CHL 0.9% 50ML MIN-BAG+ 50 ML IVPB SCH (21:00)
[2018-08-24] MEDS: APIXABAN 2.5 MG TAB PO SCH (21:57)
[2018-08-24] MEDS: AZITHROMYCIN IV 500 MG in SODIUM CHLORIDE 0.9% 250ML 250 ML IVPB SCH (23:28)
[2018-08-25] MEDS: AMPICILLIN & SULBACTAM SODIUM 1.5 GM in SODIUM CHL 0.9% 50ML MIN-BAG+ 50 ML IVPB SCH ×3 (02:44→21:33)
[2018-08-25] MEDS ORDERED: LEVALBUTEROL NEBS 1.25 MG/3 ML VIAL NEB PRN (08:37)
[2018-08-25] MEDS: LEVALBUTEROL NEBS 1.25 MG/3 ML VIAL NEB SCH ×4 (09:00→20:24)
[2018-08-25] MEDS ORDERED: METOPROLOL SUCCINATE XL 50 MG TAB PO SCH (09:00)
[2018-08-25] MEDS ORDERED: SIMVASTATIN 10 MG TAB PO SCH (09:00)
[2018-08-25] MEDS ORDERED: PANTOPRAZOLE SODIUM TAB 40 MG PO SCH (09:00)
[2018-08-25] MEDS ORDERED: ALLOPURINOL 100 MG TAB PO SCH (09:00)
[2018-08-25] MEDS ORDERED: AMPICILLIN & SULBACTAM SODIUM 1.5 GM VIAL ONE ×2 (09:30→20:16)
[2018-08-25] MEDS ORDERED: SODIUM CHL 0.9% 50ML MIN-BAG+ 50 ML IVPB ONE ×2 (09:31→20:17)
[2018-08-25] MEDS: APIXABAN 2.5 MG TAB PO SCH ×2 (09:35→21:31)
--- NOTE | 2018-08-25 12:29 | US ---
EXAM DESCRIPTION: Carotid Duplex: ULTRASOUND. CLINICAL HISTORY: 88 years Male TIA right sided COMPARISON: CT scan of the head without contrast 08/24/2018. TECHNIQUE: Transcutaneous scanning utilizing stauffer-scale and Doppler modes to evaluate the bilateral carotid systems and vertebral arteries. Percentage of diameter of stenosis or no stenosis recorded will be based upon NASCET criteria. FINDINGS: Peak systolic/end diastolic (CM-Sec) CCA Right 95/14 Left 98/15. ICA Right proximal 130/19, mid 116/15. Left proximal 72/12, Distal 100/19. Vertebral Right 64/0 Left 59/10. ECA (PS Only) Right 159 left 166. ICA/CCA peak systolic ratio: Right 1.4 Left 1.0 ICA/CCA end diastolic ratio: Right 1.3 Left 1.2 Vertebral arteries: antegrade flow. Comments: Minimal atherosclerotic plaque bilaterally. Minimal spectral broadening in the bilateral ICA vessels. Less than 20% diameter in area stenosis in the proximal left ICA. IMPRESSION: 1. Doppler evaluation of the bilateral carotid systems and vertebral arteries shows no hemodynamically significant stenoses. Bilateral diameter stenoses less than 50% by Doppler and less than 20% on grayscale evaluation. 2. Minimal amount of plaque seen in the carotid arteries bilaterally. Bilateral vertebral arteries showed antegrade-cephalad flow. Electronically signed by: Juancarlos Christianson MD 08/25/2018 12:27 PM CDT
[2018-08-25] MEDS ORDERED: SODIUM CHLORIDE 0.9% 1000ML 1,000 ML ONE (13:34)
[2018-08-25] MEDS ORDERED: FOLIC ACID INJ 5 MG/ML VIAL ONE (13:35)
[2018-08-25] MEDS: MULTIPLE VITAMIN INJ 10 ML, FOLIC ACID INJ 1 MG in SODIUM CHLORIDE 0.9% 1000ML 1,000 ML IVS SCH (13:36)
[2018-08-25] MEDS ORDERED: SODIUM CHLORIDE 0.9% 250ML 250 ML ONE (20:17)
[2018-08-25] MEDS ORDERED: AZITHROMYCIN IV 500 MG VIAL IVPB ONE (20:18)
--- NOTE | 2018-08-25 21:34 | PN ---
DATE: 08/25/18 SUPERVISING PHYSICIAN: Emanuel Saldivar M.D. SUBJECTIVE: The patient is lying in bed. He is currently having a carotid ultrasound done. He was unable to tolerate the MRI yesterday. His daughter is at the bedside. The patient has no complaints but his daughter is quite concerned about his prognosis. We discussed different options and I explained to the patient that Dr. Pritchard would be over later to discuss his plan of care. OBJECTIVE: Temperature 97.5, heart rate 57, blood pressure 157/56, respiratory rate 18, O2 sat 96% on 2.5 liters. RESPIRATORY: Essentially clear to auscultation. He has a few scattered crackles and somewhat diminished at the bases. CARDIOVASCULAR: Regular rate and irregular rhythm. GASTROINTESTINAL: Abdomen is soft, nondistended, non-tender. Bowel sounds are positive. EXTREMITIES: He has some pedal edema bilaterally. Pedal pulses are palpable at +1. NEUROLOGIC: He has a mild facial droop on the left side but very minimal. He has some mild dysphagia and he does have some difficulty answering some questions. SKIN: Warm and dry. LABORATORY: There is no lab to report at this time. RADIOLOGY: Carotid artery ultrasound shows: 1. Doppler evaluation of the bilateral carotid systems and vertebral arteries show no hemodynamically significant stenosis. Bilateral diameter stenosis less than 50% by Doppler and less than 20% on Ceron scale evaluation. 2. Minimal amount of plaque seen in carotid arteries bilaterally. Bilateral vertebral arteries show antegrade cephalad flow. All other labs and films have been reviewed via the EMR. ASSESSMENT: 1. Bilateral community acquired pneumonia. 2. Acute on chronic congestive heart failure with a reduced ejection fraction with a recent myocardial infarction with a catheterization showing a 95% occlusion of LAD with continued elevated troponins. 3. Acute on chronic renal failure complicated by recent chemotherapy and renal carcinoma. 4. Increasing weakness and severe deconditioning due to difficulty with oral intake from dysphagia. 5. Concerns for possible right-sided CVA, although possible complications from recent chemo with workups pending including mild dysarthria with dysphagia and diplopia. 6. Chronic atrial fibrillation on Eliquis with a controlled ventricular rate. 7. History of hypertension. 8. History of gastroesophageal reflux disease. PLAN: We will continue present supportive care. He will continue with his antibiotics and I will discontinue his IV fluids. The daughter will discuss his plan of care and possible hospice admission with Dr. Pritchard. I have repeated his labs for in the morning. Have good pulmonary hygiene. Will continue to treat as needed. #[id number] [facility]
[2018-08-25] MEDS: AZITHROMYCIN IV 500 MG in SODIUM CHLORIDE 0.9% 250ML 250 ML IVPB SCH (23:39)
[2018-08-26 04:29] VITALS: BP 178/71; TEMP 98.2; O2SAT 96
--- NOTE | 2018-08-26 10:52 | DS ---
SUPERVISING PHYSICIAN: Emanuel Saldivar MD ADMISSION DIAGNOSES: 1. Bilateral community acquired pneumonia. 2. Acute on chronic congestive heart failure with a reduced ejection fraction with a recent myocardial infarction with a catheterization showing a 95% occlusion of LAD with continued elevated troponins. 3. Acute on chronic renal failure complicated by recent chemotherapy and renal carcinoma. 4. Increasing weakness and severe deconditioning due to difficulty with oral intake from dysphagia. 5. Concerns for possible right-sided CVA, although possible complications from recent chemo with workups pending including mild dysarthria with dysphagia and diplopia. 6. Chronic atrial fibrillation on Eliquis with a controlled ventricular rate. 7. History of hypertension. 8. History of gastroesophageal reflux disease. DISCHARGE DIAGNOSIS: . HISTORY OF PRESENT ILLNESS: This is an 88 year-old male patient who came to the Emergency Room via EMS with complaints of shortness of breath and difficulty swallowing. He has oxygen at home. He had recently been discharged from [facility] after having an acute myocardial infarction and he developed atrial fibrillation and he was placed on anticoagulation. He also has a significant history of renal carcinoma that was treated with a nephrectomy and there was a recurrence this past year. His daughter said that he had been taking chemotherapy and after chemotherapy he developed some double vision and difficulty swallowing. In the Emergency Room on the date of admission, a CT of his soft tissue of the neck was completed and showed no findings to account for the difficulty swallowing. He also had a chest x-ray and per radiology interpretation was note of a patchy lower lobe atelectasis with volume loss or pneumonia favored over pulmonary edema from heart failure. Vital signs showed a heart rate of 64, blood pressure of 164/63, saturation 94% on room air at rest. His laboratory studies showed a white count of 10,300 with a left shift, hemoglobin 11.9, hematocrit 37.1. Chemistries showed a low potassium at 3.5. Liver functions were elevated including AST and ALT. Cardiac enzymes also showed an elevation of his troponin up to 3.53 with a CPK of 830. BNP was 802. Given his past history as well as his advanced age and concern for possible CVA versus complications from recent chemo as well as developing bilateral pneumonia as well as the difficulty swallowing, there was concern for aspiration pneumonia. Dr. Pritchard, his primary care physician, requested the patient be admitted for further treatment and evaluation. He was started on Zosyn in the Emergency Room as well as multivitamin infusion. He was admitted to the hospital in stable condition. HOSPITAL COURSE: He received his IV infusion of multivitamin at a low rate the next 24 to 36 hours. He did discuss with his daughter and he was made a Do Not Resuscitate. His daughter also discussed with him eventually being admitted to hospice. The patient multiple times expressed that he did not want anything heroic done. He was continued on his Eliquis and that would suffice for DVT prophylaxis. Dr. Pritchard came and talked to the family at length and they would like to try the antibiotic therapy to see if they could get him where he was stronger and then they would discuss hospice after discharge. Overnight, he rested comfortably. About 5:30 on the morning of his , lab was in his room, he was awake and his lab was drawn. X-ray went to his room at 6:15 and he was not breathing and there were no heart sounds. LABORATORY: Some of the labs and films are per the history of present illness. On laboratory, his followup CBC was unremarkable. His metabolic panel had a slightly worsening creatinine at 3.03. His calcium was slightly high at 10.6. RADIOLOGY: Carotid artery ultrasound showed: 1. Doppler evaluation of the bilateral carotid systems and vertebral arteries showed no hemodynamically significant stenosis. 2. Minimal amount of plaque seen in his carotid arteries bilaterally. An MRI had been ordered but he was unable to tolerate. DISCHARGE PLAN: at 6:20 AM on 08-26-18. The patient's body will be discharged to home of family choice. DISCHARGE MEDICATIONS: None. #[id number] [facility]
== END 2018-08-26 07:50 | disposition expired | DRG 177 ==
LOC: ER 09:47 → MS 15:00
PROVIDERS: ADMIT Nurse Practitioner Family; ATTEND Nurse Practitioner Acute Care
DX: J69.0 Pneumonitis due to inhalation of food and vomit (principal); I50.23 Acute on chronic systolic (congestive) heart failure; I13.0 Hypertensive heart and chronic kidney disease with heart failure and stage 1 through stage 4 chronic kidney disease, or unspecified chronic kidney disease; N17.9 Acute kidney failure, unspecified; I63.9 Cerebral infarction, unspecified; I21.4 Non-ST elevation (NSTEMI) myocardial infarction; C64.1 Malignant neoplasm of right kidney, except renal pelvis; N18.9 Chronic kidney disease, unspecified; K21.9 Gastro-esophageal reflux disease without esophagitis; I25.10 Atherosclerotic heart disease of native coronary artery without angina pectoris; I48.2 Chronic atrial fibrillation; E11.22 Type 2 diabetes mellitus with diabetic chronic kidney disease; R47.1 Dysarthria and anarthria; E78.5 Hyperlipidemia, unspecified; R31.9 Hematuria, unspecified; R13.13 Dysphagia, pharyngeal phase; H53.2 Diplopia; R29.810 Facial weakness; T45.1X5A Adverse effect of antineoplastic and immunosuppressive drugs, initial encounter; Z66 Do not resuscitate; Z99.81 Dependence on supplemental oxygen; Z79.01 Long term (current) use of anticoagulants; Z90.5 Acquired absence of kidney; Z85.528 Personal history of other malignant neoplasm of kidney; Z90.49 Acquired absence of other specified parts of digestive tract; Z79.84 Long term (current) use of oral hypoglycemic drugs; Z82.3 Family history of stroke; Z82.49 Family history of ischemic heart disease and other diseases of the circulatory system; Z63.4 Disappearance and death of family member; Z87.891 Personal history of nicotine dependence